=== PATIENT | male | born 1950 | race Native Hawaiian/Other Pacific Islander ===

== ENCOUNTER 2021-06-06 01:55 | Day surgery (SDC) | payer MEDICARE, SELFPAY ==
[2021-05-17 14:33] VITALS: BMI 25.2
--- NOTE | 2021-06-03 16:01 | PM.HPGS ---
History of Present Illness History of Present Illness Consent: Risks, benefits, and alternatives have been discussed and questions answered. Patient agrees to proceed with procedure. Chief complaint: hx of colon polyps Narrative: Marcos Gould is a 71 year old male here for colon cancer screening. He had 2 polyps removed 4 years ago Review of Systems Review of Systems: All systems reviewed & are unremarkable except as noted in HPI and below PMFSH Past Medical History Medical History Diabetes Hyperlipidemia ROSAURA (obstructive sleep apnea) Surgical History Surgical History H/O colonoscopy Social History Social History Alcohol intake: current Alcohol use details: 1 per month Living arrangements: with family Spiritual care concerns: No Meds Home Medications and Allergies Home Medications Medication Instructions Recorded Confirmed Type Adults Multivitamin 1 tablet PO DAILY 05/17/21 05/17/21 History Aspir-81 81 mg PO DAILY 05/17/21 05/17/21 History metformin 100 mg PO DAILY 05/17/21 05/17/21 History rosuvastatin 10 mg PO DAILY 05/17/21 05/17/21 History Allergies Allergy/AdvReac Type Severity Reaction Status Date / Time No Known Allergies Allergy Unknown Verified 06/06/21 09:52 Exam Resp: Auscultation: clear to auscultation bilaterally Cardio: Rate: regular rate Rhythm: regular rhythm GI: GI Palp: Yes Soft to palpation and No Tenderness to palpation present (GI) Assessment and Plan Assessment and plan (1) Colon cancer screening: Code(s): Z12.11 - Encounter for screening for malignant neoplasm of colon Status: Acute Assessment and Plan: Colonoscopy with possible biopsy or polypectomy or cautery or injection of substances.
[2021-06-06 09:54] VITALS: BP 141/73; PULSE 74; RESP 20; TEMP 36.2; O2SAT 99; BMI 24.2
[2021-06-06] MEDS: LACTATED RINGERS 1,000 ML 150 ML IV CONT (10:10)
--- NOTE | 2021-06-06 10:13 | P.PNAN_ITS ---
Anes - Initial Pre Proc Eval Procedure: Operation Date: 06/06/21 10:30 Proposed Procedures p Screening Colonoscopy - Víctor Medina MD Date/Time: 06/06/21 10:13 Surgeon: Víctor Medina MD Pre Op Diagnosis: hx of colon polyps Patient Data Age: 71 Gender: M Height: 1.7 m Weight: 70.1 kg Last Vital Signs Temp 36.2 C L 06/06/21 09:54 Pulse 74 06/06/21 09:54 Resp 20 06/06/21 09:54 BP 141/73 H 06/06/21 09:54 Pulse Ox 99 06/06/21 09:54 Allergies Allergy/AdvReac Type Severity Reaction Status Date / Time No Known Allergies Allergy Unknown Verified 06/06/21 09:52 Home Medications Medication Instructions Recorded Confirmed Type Adults Multivitamin 1 tablet PO DAILY 05/17/21 05/17/21 History Aspir-81 81 mg PO DAILY 05/17/21 05/17/21 History metformin 100 mg PO DAILY 05/17/21 05/17/21 History rosuvastatin 10 mg PO DAILY 05/17/21 05/17/21 History Patient hx anesthesia problems: none Family hx anesthesia problems: none Results Review: All pre-operative results and documents have been reviewed as part of the pre-operative evaluation. [facility] Past Medical History Medical History (Updated 06/06/21 @ 10:13 by Alcon Ji MD) Diabetes Hyperlipidemia ROSAURA (obstructive sleep apnea) Surgical History Surgical History (Updated 06/06/21 @ 10:14 by Alcon Ji MD) H/O colonoscopy Social History Social History Alcohol intake: current Alcohol use details: 1 per month Living arrangements: with family Spiritual care concerns: No Anes - Eval Final PreProcedure Day of Procedure 06/06/21 10:13 Patient weight: normal Heart: regular rate and rhythm Lungs: clear to auscultation Airway: Mallampati scale class II Neurological: alert and oriented Last oral intake: >/= 8 hours ASA classification: II Emergent: no Anesthetic plan: proceed Anesthesia type and monitoring: general GIVS Results Review: All pre-operative results and documents have been reviewed as part of the pre-operative evaluation. Informed Consent: The patient's anesthetic plan and its attendant risks and benefits were discussed with the patient/family/POA. Questions were solicited and answers provided to the satisfaction of the patient/family/POA.
[2021-06-06 10:46] LABS: Glucose Point of Care 149 mg/dl (65-105)
[2021-06-06 10:49] VITALS: BP 115/63; PULSE 62; RESP 18; O2SAT 99
[2021-06-06 10:59] VITALS: BP 122/78; PULSE 60; RESP 18; O2SAT 100
== END 2021-06-06 11:18 | disposition home or self-care (01) ==
PROVIDERS: PCP Internal Medicine; Visit Provider Internal Medicine Gastroenterology
PROC: 0DJD8ZZ Inspection of Lower Intestinal Tract, Via Natural or Artificial Opening Endoscopic (ICD-10-PCS; CPT 45378; principal; 2021-06-06 10:30)
DX: Z12.11 Encounter for screening for malignant neoplasm of colon (principal); Z86.010 Personal history of colon polyps; Z79.82 Long term (current) use of aspirin; Z79.84 Long term (current) use of oral hypoglycemic drugs; E11.9 Type 2 diabetes mellitus without complications; G47.33 Obstructive sleep apnea (adult) (pediatric); E78.5 Hyperlipidemia, unspecified
CPT/HCPCS: G0105; 82948; J2704; J7120

== ENCOUNTER 2025-02-10 12:51 | Outpatient (CLI) | payer MEDICARE, SELFPAY ==
--- NOTE | ~2025-02-10 | XR_ITS ---
Right Knee Technique: AP, lateral, and sunrise views were obtained. Clinical History: Pain Findings: No fracture or dislocation is seen. Osseous alignment is anatomic. There is mild degenerati ve spurring at the intercondylar notch and patella. Soft tissues are unremarkable. No joint effusion is seen. Impression: Minimal degenerative change, as above. Reviewed, dictated and finalized at location . Impression: Minimal degenerative change, as above.
--- OUTSIDE RECORDS SUMMARY | 2025-02-10 13:01 | XMS_ITS | Clinical Summary ---
Author Organization [facility] Address [address] [place] [address] Care Team Providers Care Irrigation Equipment Mechanic Name Role Phone Matthew Razo MD Primary Care Provider + [phone] Allergies No known active allergies Medications CPAP DEVICE, DME, 12 cm. 07/25/2017 A ctive aspirin EC (ASPIRIN ADULT LOW STRENGTH) 81 MG tablet Active metFORMIN 500 MG tablet 07/22/2019 Active rosuvastatin (CRESTOR) 10 MG tablet Active Active Problems No known active problems Social History Tobacco Use Types Packs/Day Years Used Date Smoking Tobacco: Never Smokeless Tobacco: Never Sex and Gender Information Value Date Recorded Sex Assigned at Not on file Legal Sex Male 9:24 PM CDT Gender Identity Not on file Sexual Orientation Not on file Last Filed Vital Signs Vital Sign Reading Time Taken Comments Blood Pressure 122/70 07/28/2019 10:38 AM ZOO KEEPER Pulse 59 07/28/2019 10:38 AM ZOO KEEPER Temperature 36.8 C (98.3 F) 07/28/2019 10:38 AM ZOO KEEPER Respiratory Rate 16 07/28/2019 10:38 AM ZOO KEEPER Oxygen Saturation 99% 07/28/2019 10:38 AM ZOO KEEPER Inhaled Oxygen Concentration - - Weight 79.8 kg (176 lb) 07/28/2019 10:38 AM ZOO KEEPER Height 168.9 cm (5' 6.5) 07/28/2019 10:38 AM CS T Body Mass Index 27.98 07/28/2019 10:38 AM ZOO KEEPER Plan of Treatment Health Maintenance Due Date Last Done Comments Hepatitis C 1968 DTaP, Tdap and Td Vaccines ( 1 - Tdap) 01/19/1968 Pneumococcal Vaccine: 50+ Ye ars (1 of 1 - PCV) 1999 Zoster Vaccines (1 of 2) 1999 Annual Medicare Wellness Visit 2014 RSV Immunization or 60+ Years (1 - 1-dose 75+ series) 01/19/2024 COVID-19 Vaccine ( - 2023-2 5 season) 2024 Meningococcal B Vaccine Aged Out No l onger eligible based on patient's age to complete this topic Meningococcal Vaccine Aged Out No anthony zabrina eligible based on patient's age to complete this topic RSV Immunizations Under 20 Months Aged Out No longer eligible based on patient's age to complete this topic Insurance [facility] Care Teams Irrigation Equipment Mechanic Relationship Specialty Start Date End Date Matthew Razo MD [address] [place] [address] PCP - General INTERNAL MEDICINE 07/28/19
== END 2025-02-10 12:52 | disposition home or self-care (01) ==
PROVIDERS: PCP Internal Medicine; Visit Provider Internal Medicine
DX: M25.561 Pain in right knee (principal)
CPT/HCPCS: 73562

== ENCOUNTER 2025-05-15 12:30 | Outpatient (RCR) | payer MEDICARE, SELFPAY ==
--- NOTE | 2025-03-20 15:06 | WNDPHOTO ---
PHOTO ONLY - See Nursing Notes and/ or assessments for documentation.
--- NOTE | 2025-03-20 15:33 | OPREHPOC ---
Outpatient Therapy Plan of Care This is a Multidisciplinary Plan of Care that may contain components documented by all disciplines (PT, OT, and ST.) PT Problem 1 PT Problem #1 Knowledge Deficit PT Goal 1 Goal / Goal Update *independent with HEP Target Visit 8 PT Problem 2 PT Problem #2 Pain PT Goal 1 Goal / Goal Update * pt report pain of 2/10 at worst Target Visit 8 PT Problem 3 PT Problem #3 Impaired Range of Motion PT Goal 1 Goal / Goal Update increase flexibility of R hip and knee, to decrease strain to knee joint: 1* supine SLR/hamstring length of 75' 2* anterior hip-quad length with prone knee flexion 115' Target Visit 8 PT Problem 4 PT Problem #4 Impaired Strength PT Goal 1 Goal / Goal Update *1*increase strength of R knee and hip to 4+/5, to improve stability to knee joint 2* single leg standing R x 10 seconds with good stability Target Visit 8
--- NOTE | 2025-03-20 15:33 | PTOPEVAL1 ---
Assessment and note entered by Karly Gordon, PT Evaluation Information Assessment Status Evaluation ICD-10 Condition Codes (PT) Pain in right knee M25.561 Onset about 1 year ago Subjective Information R knee gives out; when turn, it hurts; has not golfed or walked for fitness this summer due to knee pain; x ray: reports mild degenerative spurring; activity: retired, active, yard work; Reported Pain Level Pain Score 0: Self Report Additional Pain Score Comments pain range in the past week 0-5/10; when walking, turn or twist knee- have a pinch in the knee- posterior aspect; soreness of both quads increase pain: yard work- at end of day after ~ 6 hours of working; put R leg on L to put sock on; decrease pain: sit, rest, ice, wear compression sleeve over knee does not take meds for knee; sleep is not disrupted; Assessment PT Clinical Summary Vern has the diagnosis of R knee pain. He reports onset about 1 year ago, without trauma to knee. LE functional scale rating of 30% limitation in activity level. He is retired, active but has limited his walking and golf due to pain. x ray report states mild degenerative spurring of knee. Pain is increased with walking, putting on his sock with crossing his leg and twisting his knee. With the evaluation: he has tightness over R hamstring and anterior hip-quad; gross weakness over R hip and knee; and decreased single leg standing due to weakness. Skilled PT services are indicated for modalities to decrease pain; therapeutic exercises to increase R hip and knee strength and flexibility with education for HEP. Plan of Care Interventions Electrical Stimulation,Hot Pack/Cold Pack,Manual Therapy,Neuro Re-education,Patient/Caregiver Education,Therapeutic Activities,Therapeutic Exercise,Ultrasound,Other Other Interventions taping PT Services Indicated Yes Treatment Frequency and 1-2x/wk for 8 visits Duration These treatments will address the objective and functional deficits as defined above. The patient will be advanced safely and appropriately in order for the patient to progress towards his/her prior level of function. Additional exercises will be introduced and as well as a comprehensive home exercise program upon discharge, if needed, ?to ensure carryover of functional gains achieved in the clinic. This treatment plan has been reviewed and agreement upon by the patient.
--- NOTE | 2025-05-15 13:16 | OPREHPOC ---
Outpatient Therapy Plan of Care This is a Multidisciplinary Plan of Care that may contain components documented by all disciplines (PT, OT, and ST.) PT Problem 1 PT Problem #1 Knowledge Deficit PT Goal 1 Goal / Goal Update *independent with HEP 05-15-25 d/c goal met Target Visit 8 Progress Met PT Problem 2 PT Problem #2 Pain PT Goal 1 Goal / Goal Update * pt report pain of 2/10 at worst Target Visit 8 Progress Met PT Problem 3 PT Problem #3 Impaired Range of Motion PT Goal 1 Goal / Goal Update increase flexibility of R hip and knee, to decrease strain to knee joint: 1* supine SLR/hamstring length of 75' 2* anterior hip-quad length with prone knee flexion 115' 05-15-25 d/c goal 1 met; #2 improved to 110 Target Visit 8 Progress Partially Met PT Problem 4 PT Problem #4 Impaired Strength PT Goal 1 Goal / Goal Update *1*increase strength of R knee and hip to 4+/5, to improve stability to knee joint 2* single leg standing R x 10 seconds with good stability 05-15-25 d/c goals met Target Visit 8 Progress Met
--- NOTE | 2025-05-15 13:16 | PTOPDC ---
Assessment and note entered by Karly Gordon, PT Assessment Status Discharge ICD-10 Condition Codes (PT) Pain in right knee M25.561 Onset about 1 year ago Subjective Information doing better; have been doing my gardening and yard work; have not returned walking on treadmill or golfing; Reported Pain Level Pain Score Self Report Additional Pain Score Comments in the past week, pain range 0-5/10; pain to 5/10 with standing and turn quick with foot on the ground, hurts less than 1 minute. Assessment PT Clinical Summary Vern has received 8 PT sessions. With today's assessment, he has improved in all areas, but pain range is the same at 0-5/10, with less duration of pain-- less than 1 minute; self assessment with LE functional score of 15% limitation in activity level; increase strength of R hip and knee to 4+/5; increase flexibility with R hamstring and anterior hip-quad length; education completed for HEP. He reports he has not returned to golfing or treadmill walking at home. He plans to return to treadmill for fitness during the winter. He did walk on the treadmill in our dept without any issues. The goals were met, except pain rating at worst. Discharge PT. He is to continue with HEP and monitor pain with increased activity. Plan of Care PT Services Indicated No
== END 2025-05-15 15:03 | disposition home or self-care (01) ==
LOC: ANHPT 12:30
PROVIDERS: PCP Internal Medicine; Visit Provider Internal Medicine
DX: M25.561 Pain in right knee (principal)
CPT/HCPCS: 97110; 97116; 97140; 97161; 97530

== ENCOUNTER 2025-07-14 13:02 | Outpatient (CLI) | payer MEDICARE, SELFPAY ==
--- NOTE | ~2025-07-14 | XR_ITS ---
EXAMINATION: XR chest 2V, 07/14/2025 13:04 LOOM TECHNICIAN HISTORY: R05.9 - Cough x 3 weeks COMPARISON: No comparisons available. Technique: 2 views obtained. Findings: The lungs are clear, no effusion. No pneumothorax. Heart is normal size. Mediastinal and hilar contours are within normal limits. Bony thorax no acute abnormality. Impression: No acute cardiopulmonary abnormality. Reviewed, dictated and finalized at location P. TECHNICIAN Impression: No acute cardiopulmonary abnormality.
--- OUTSIDE RECORDS SUMMARY | 2025-07-14 15:07 | XMS_ITS | Clinical Summary ---
Author Organization [facility] Address [address] [place] [address] Care Team Providers Care Corporate Administrator Name Role Phone Matthew Razo MD Primary Care Provider + [phone] Allergies No known active allergies Medications CPAP [...] Comments Blood Pressure 122/70 07/28/2019 10:38 AM SUPERINTENDENT DRIVERS Pulse 59 07/28/2019 10:38 AM SUPERINTENDENT DRIVERS Temperature 36.8 C (98.3 F) 07/28/2019 10:38 AM SUPERINTENDENT DRIVERS Respiratory Rate 16 07/28/2019 10:38 AM SUPERINTENDENT DRIVERS Oxygen Saturation 99% 07/28/2019 10:38 AM SUPERINTENDENT DRIVERS Inhaled Oxygen Concentration - - Weight 79.8 kg (176 lb) 07/28/2019 10:38 AM SUPERINTENDENT DRIVERS Height 168.9 cm (5' 6.5) 07/28/2019 10:38 AM CS T Body Mass Index 27.98 07/28/2019 10:38 AM SUPERINTENDENT DRIVERS Plan of Treatment Health Maintenance Due Date Last Done Comments Hepatitis C 1968 DTaP, Tdap and Td Vaccines ( 1 - Tdap) 01/19/1968 Pneumococcal Vaccine: 50+ Ye ars (1 of 1 - PCV) 1999 Zoster Vaccines (1 of 2) 1999 Annual Medicare Wellness Visit 2014 RSV Immunization or 60+ Years (1 - 1-dose 75+ series) 01/19/2024 COVID-19 Vaccine (1 - 2024-2 6 season) 2025 Influenza Adult (#1) 2025 Hepatitis A Vaccines Aged Out No long er eligible based on patient's age to complete this topic Meningococcal B Vaccine Aged Out No l onger eligible based on patient's age to complete this topic Meningococcal Vaccine Aged Out No anthony zabrina eligible based on patient's age to complete this topic RSV Immunizations Under 20 Months Aged Out No longer eligible based on patient's age to complete this topic Insurance MEDICARE Care Teams Corporate Administrator Relationship Specialty Start Date End Date Matthew Razo MD [address] [place] [address] PCP - General INTERNAL MEDICINE 07/28/19
--- OUTSIDE RECORDS SUMMARY | 2025-07-14 15:07 | XMS_ITS | Clinical Summary ---
Author Organization [facility] Address [address] [place] [address] Care Team Providers Care Sales Agent [employer] Insurance Name Role Phone Pcp, No Primary Care Provider [phone] Immunizations Immunization Administration Dates Next Due Shingrix Recombinant Dose 05/14/2025 Social History Tobacco Use Types Packs/Day Years Used Date Smoking Tobacco: Never Assessed Sex and Gender Information Value Date Recorded Sex Assigned at Not on file Legal Sex Male 12:35 PM EDT Gender Identity Not on file Sexual Orientation Not on file Plan of Treatment Not on file Medical Devices Not on file Care Teams Sales Agent [employer] Insurance Relationship Specialty Start Date End Date Pcp, Erna PCP - General Family Medicine 12/05/21
== END 2025-07-14 13:03 | disposition home or self-care (01) ==
PROVIDERS: PCP Internal Medicine; Visit Provider Internal Medicine
DX: R05.9 Cough, unspecified (principal)
CPT/HCPCS: 71046